=== PATIENT | female | born 1960 | race Caucasian/White ===

== ENCOUNTER 2016-08-10 19:13 | Emergency (ER) | payer MEDICAID ==
[2016-08-10 20:01] VITALS: BMI 24.5
[2016-08-10 20:07] VITALS: PULSE 60; RESP 18; TEMP 98.1
--- NOTE | 2016-08-10 20:39 | ED PDOC ---
Arrival/HPI - History of Present Illness Time/Duration: Prior to Arrival, > month Symptom Onset: Gradual Symptom Course: Unchanged Quality: Pressure Severity Level: 10 <Wilbert Baca - Last Filed: 08/10/16 22:11> <Diana Rivero - Last Filed: 08/10/16 22:20> - General Chief Complaint: Headache Time Seen by Provider: 08/10/16 20:24 - History of Present Illness Narrative History of Present Illness (Text): 08/10/16 20:39 This is a 55 year old female with a pmh notable for migraines and GERD presenting with a persistent headache x 3 months. The patient reports unremitting headache x 3 months without relief. The patient has been following with her pMD and neurologist. The patient states that all tests have returned negative. The patient takes topomax, amityptyaline, and fioricet for headaches. The patient reports nausea and phonophobia. The patient denies fever, chills, chest pain, shortness of breath, abdominal pain, changes in bowel /bladder, and extremity weakness/paresthesias. 08/10/16 20:49 (Wilbert Baca) Past Medical History - Provider Review Nursing Documentation Reviewed: Yes - Travel History Have you recently traveled outside [place] w/in the past 3 mons?: No - Infectious Disease Hx of Infectious Diseases: None - Reproductive Menopause: Yes - Neurological Hx Migraine: Yes - Renal Hx Kidney Stones: Yes - Psychiatric Hx Psychophysiologic Disorder: No Hx Anxiety: No Hx Bipolar Disorder: No Hx Depression: No Hx Emotional Abuse: No Hx Hallucinations: No Hx Panic Disorder: No Hx Post Traumatic Stress Disorder: No Hx Psychosis: No Hx Physical Abuse: No Hx Schizophrenia: No Hx Sexual Abuse: No Hx Substance Use: No - Surgical History Other/Comment: Fibroids - Anesthesia Hx Anesthesia: Yes Hx Anesthesia Reactions: No Hx Malignant Hyperthermia: No <Wilbert Baca - Last Filed: 08/10/16 22:11> <Diana Rivero - Last Filed: 08/10/16 22:20> - Patient History Narrative Patient History: migraines, GERD (Wilbert Baca) Family/Social History - Physician Review Nursing Documentation Reviewed: Yes Family/Social History: No Known Family HX Smoking Status: Never Smoked Hx Alcohol Use: No Hx Substance Use: No <Wilbert Baca - Last Filed: 08/10/16 22:11> Allergies/Home Meds <Wilbert Baca - Last Filed: 08/10/16 22:11> <JosefaFaustohernesto - Last Filed: 08/10/16 22:20> Allergies/Adverse Reactions: Allergies morphine Adverse Reaction (Verified 08/10/16 20:07) ITCHING Home Medications: Home Meds Medication Instructions Recorded Confirmed Amitriptyline [Elavil] 50 mg PO 10/17/15 10/17/15 Butalbital/Acetaminophen 1 tab PO 10/17/15 [Butalbital-Acetaminophen 325 mg-50 mg] Omeprazole [Prilosec] 40 mg PO DAILY 10/17/15 10/17/15 Review of Systems - Physician Review All systems were reviewed & negative as marked: Yes - Review of Systems Constitutional: absent: Fatigue, Fevers Eyes: absent: Vision Changes, Photophobia ENT: Other (Phonophobia ). absent: Hearing Changes, Tinnitus, TMJ Pain, Rhinorrhea Respiratory: absent: SOB Cardiovascular: absent: Chest Pain, Palpitations Gastrointestinal: absent: Abdominal Pain Genitourinary Female: absent: Dysuria, Frequency Musculoskeletal: absent: Arthralgias, Back Pain Skin: absent: Rash, Pruritis Neurological: Headache. absent: Dizziness Endocrine: absent: Diaphoresis, Polyuria Hemo/Lymphatic: absent: Adenopathy Psychiatric: absent: Anxiety <Wilbert Baca - Last Filed: 08/10/16 22:11> Physical Exam Vital Signs Reviewed: Yes Temperature: Afebrile Blood Pressure: Normal Pulse: Regular Respiratory Rate: Normal Appearance: Positive for: Well-Appearing, Non-Toxic, Uncomfortable Pain Distress: Moderate Mental Status: Positive for: Alert and Oriented X 3 - Systems Exam Head: Present: Atraumatic, Normocephalic Pupils: Present: PERRL, Other (no papiledema appreciated on fundoscopy ) Extroacular Muscles: Present: EOMI. No: Entrapment Conjunctiva: Present: Normal. No: Injected Ears: Present: Normal, NORMAL TM, Normal Canal. No: Erythema, TM Bulging Mouth: Present: Moist Mucous Membranes, Normal Lips, Normal Tounge Pharnyx: Present: Normal. No: ERYTHEMA, EXUDATE, TONSILS ENLARGED, Peritonsilar Swelling, Uvular Deviation Neck: Present: Normal Range of Motion. No: Meningeal Signs, MIDLINE TENDERNESS , JVD Respiratory/Chest: Present: Clear to Auscultation, Good Air Exchange. No: Respiratory Distress, Accessory Muscle Use Cardiovascular: Present: Regular Rate and Rhythm, Normal S1, S2. No: Murmurs Abdomen: Present: Normal Bowel Sounds. No: Tenderness, Distention, Peritoneal Signs Upper Extremity: Present: Normal Inspection, Normal ROM, NORMAL PULSES, Neurovascularly Intact. No: Cyanosis, Edema Lower Extremity: Present: Normal Inspection, NORMAL PULSES, Normal ROM, Neurovascularly Intact. No: Edema, CALF TENDERNESS Neurological: Present: GCS=15, CN II-XII Intact, Speech Normal, Motor Func Grossly Intact, Normal Sensory Function, Normal Cerebellar Funct, Norm Deep Tendon Reflexes, Gait Normal, Memory Normal Skin: Present: Warm, Dry, Normal Color. No: Rashes Psychiatric: Present: Alert, Oriented x 3 <Wilbert Baca - Last Filed: 08/10/16 22:11> Vital Signs Temp Pulse Resp Pulse Ox 08/10/16 20:00 98.1 F 60 18 99 Medical Decision Making Re-evaluation Time: 22:11 Reassessment Condition: Re-examined, Improving,but remains with symptoms - RAD Interpretation Patent Agent: Radiologist <Wilbert Baca - Last Filed: 08/10/16 22:11> - RAD Interpretation Patent Agent: Radiologist <Diana Rivero - Last Filed: 08/10/16 22:20> ED Course and Treatment: 08/10/16 20:49 Impression: This is a 55 year old female with a pmh notable for migraines and GERD presenting with a persistent headache x 3 months. The patient appears uncomfortable, but calm. The patient likely has a migraine consistent with her history. Differential: Migraine Tension Headache Cluster Headache Plan: Toradol 13mg IV Reglan 10mg IV 1L bolus NS Prior Visits No inpatient admissions 02/13/16- ED visit for unspecified abdominal pain Progress Note: Patient seen and examined at the bedside. The patient appears uncomfortable. Patient resting in bed prior to examination. No photophobia. Patient unaware of her migraine triggers. Patient currently being followed by PMD and neurologist as an outpatient for headaches. Patient will be treated symptomatically while in the ED. 08/10/16 22:14 Patient has symptomatically improved. Patient requesting discharge. Patient medically stable for discharge. Discharge plan thoroughly discussed with the patient. She is agreeable with the plan. The patient was medically stable for discharge home with follow ups as discussed. (Wilbert Baca) Patient seen and examined with resident. Came up with treatment and disposition plan with resident. The patient is a 55 year old female who presents to the emergency department for evaluation of a headache. Additional HPI details as noted by the resident. Physical examination reveals no acute findings. 08/10/16 21:57 CT results reviewed, interpreted by [facility]. IMPRESSION: No acute intracranial abnormality. If symptoms persist, consider MRI for further evaluation. 08/10/16 22:[address] and patient feeling much better -will d/c to f/u her neurologist. (Diana Rivero) - RAD Interpretation Narrative RAD Interpretations (Text): 08/10/16 22:11 FINDINGS: Brain: No intracranial hemorrhage. No mass. No definite edema. Ventricles: No hydrocephalus. Bones/joints: No acute fracture. Soft tissues: Unremarkable. Sinuses: No acute sinusitis. Mastoid air cells: No mastoid effusion. Orbits: Unremarkable as visualized. IMPRESSION: 1. No acute intracranial abnormality. If symptoms persist, consider MRI for further evaluation. 2. Incidental/non-acute findings are described above. (Wilbert Baca) EXAM: CT Head Without Intravenous Contrast. FINDINGS: Brain: No intracranial hemorrhage. No mass. No definite edema. Ventricles: No hydrocephalus. Bones/joints: No acute fracture. Soft tissues: Unremarkable. Sinuses: No acute sinusitis. Mastoid air cells: No mastoid effusion. Orbits: Unremarkable as visualized. IMPRESSION: 1. No acute intracranial abnormality. If symptoms persist, consider MRI for further evaluation. 2. Incidental/non-acute findings are described above (Diana Rivero) Radiology Orders: 08/10/16 21:02 Brain [HEAD W/O CONTRAST] [CT] Stat - Medication Orders Current Medication Orders: Discontinued Medications Sodium Chloride (Sodium Chloride 0.9%) 1,000 mls @ 999 mls/hr IV .Q1H1M STA Stop: 08/10/16 21:55 Last Admin: 08/10/16 21:45 Dose: 999 MLS/HR eMAR Start Stop Document 08/10/16 21:45 SB (Rec: 08/10/16 22:13 SB [id number]) Intravenous Solution Start Date 08/10/16 Start Time 22:13 End Date 08/10/16 Ketorolac Tromethamine (Toradol) 30 mg IVP STAT STA Stop: 08/10/16 20:56 Last Admin: 08/10/16 21:21 Dose: 30 MG IVP Administration Document 08/10/16 21:21 SB (Rec: 08/10/16 21:21 [id number] Charges for Administration # of IVP Administrations 1 Metoclopramide HCl (Reglan) 10 mg IVP STAT STA Stop: 08/10/16 20:56 Last Admin: 08/10/16 21:21 Dose: 10 MG IVP Administration Document 08/10/16 21:21 SB (Rec: 08/10/16 21:21 [id number]) Charges for Administration # of IVP Administrations 1 <Wilbert Baca - Last Filed: 08/10/16 22:11> - PA / CARDIOLOGY RN / Resident Statement MD/DO has reviewed & agrees with the documentation as recorded. MD/DO has examined the patient and agrees with the treatment plan. - Scribe Statement The provider has reviewed the documentation as recorded by the Scribe <Diana Rivero - Last Filed: 08/10/16 22:20> - Scribe Statement Luke Zaragoza Provider Scribe Attestation: All medical record entries made by the Scribe were at my direction and personally dictated by me. I have reviewed the chart and agree that the record accurately reflects my personal performance of the history, physical exam, medical decision making, and the department course for this patient. I have also personally directed, reviewed, and agree with the discharge instructions and disposition. (Diana Rivero) Disposition/Present on Arrival - Present on Arrival Any Indicators Present on Arrival: No History of DVT/PE: No History of Uncontrolled Diabetes: No Urinary Catheter: No History of Decub. Ulcer: No History Surgical Site Infection Following: None - Disposition Have Diagnosis and Disposition been Completed?: Yes Disposition Time: 22:00 Patient Plan: Discharge <Wilbert Baca - Last Filed: 08/10/16 22:11> <Diana Rivero - Last Filed: 08/10/16 22:20> - Disposition Diagnosis: Migraine Disposition: HOME/ ROUTINE Patient Problems: Current Active Problems Problem Status Diagnosed Migraine Acute Condition: FAIR Discharge Instructions (ExitCare): Migraine Headache (ED) Print Language: ROMANIAN Additional Instructions: 1.) Follow up with neurologist within 2 days of discharge 2.) Follow up with PMD within 2 days of discharge 3.) Maintain adequate hydration 4.) Keep a diary/log of events preceding headache to identify migraine triggers 5.) If symptoms return/worsen please return to the ED for evaluation Referrals: Lesli Briceno MD [Primary Care Provider] - Follow up with primary Kvng Causey MD [Staff Provider] - Follow up with primary
[2016-08-10] MEDS ORDERED: Sodium Chloride 0.9% 1,000 ML IV STA (20:55)
--- NOTE | 2016-08-10 21:53 | CT ---
EXAM: CT Head Without Intravenous Contrast. CLINICAL HISTORY: 55 years old, female; Pain; Headache; Migraine; Aura effect not specified; Other: Unknown TECHNIQUE: Axial computed tomography images of the head/brain without intravenous contrast. This CT exam was performed using one or more of the following dose reduction techniques: automated exposure control, adjustment of the mA and/or kV according to patient size, and/or use of iterative reconstruction technique. COMPARISON: No relevant prior studies available. FINDINGS: Brain: No intracranial hemorrhage. No mass. No definite edema. Ventricles: No hydrocephalus. Bones/joints: No acute fracture. Soft tissues: Unremarkable. Sinuses: No acute sinusitis. Mastoid air cells: No mastoid effusion. Orbits: Unremarkable as visualized. IMPRESSION: 1. No acute intracranial abnormality. If symptoms persist, consider MRI for further evaluation. 2. Incidental/non-acute findings are described above.
[2016-08-10 22:21] VITALS: BP 145/83; O2SAT 96
== END 2016-08-10 22:20 | disposition home or self-care (01) ==
LOC: ED 19:13
DX: G43.909 Migraine, unspecified, not intractable, without status migrainosus (principal)
CPT/HCPCS: 70450; 96374; 96375; 99285; J1885; J2765; J7040

== ENCOUNTER 2017-05-07 17:51 | Emergency (ER) | payer MEDICAID ==
--- NOTE | 2017-05-07 18:07 | ED PDOC ---
Arrival/HPI - General Chief Complaint: Headache Time Seen by Provider: 05/07/17 18:04 Historian: Patient - History of Present Illness Narrative History of Present Illness (Text): 05/07/17 18:07 This is a 55 year old female with a pmh notable for migraines and GERD presenting with a persistent headache since last night. Past Medical History - Infectious Disease Hx of Infectious Diseases: None - Neurological Hx Migraine: Yes - Renal Hx Kidney Stones: Yes - Psychiatric Hx Psychophysiologic Disorder: No Hx Anxiety: No Hx Bipolar Disorder: No Hx Depression: No Hx Emotional Abuse: No Hx Hallucinations: No Hx Panic Disorder: No Hx Post Traumatic Stress Disorder: No Hx Psychosis: No Hx Physical Abuse: No Hx Schizophrenia: No Hx Sexual Abuse: No Hx Substance Use: No - Surgical History Other/Comment: Fibroids - Anesthesia Hx Anesthesia: Yes Hx Anesthesia Reactions: No Hx Malignant Hyperthermia: No Family/Social History Smoking Status: Never Smoked Hx Alcohol Use: No Hx Substance Use: No Allergies/Home Meds Allergies/Adverse Reactions: Allergies morphine Adverse Reaction (Verified 08/10/16 20:07) ITCHING Home Medications: Home Meds Medication Instructions Recorded Confirmed Amitriptyline [Elavil] 50 mg PO DAILY 10/17/15 05/07/17 Butalbital/Acetaminophen 1 tab PO DAILY PRN 10/17/15 05/07/17 [Butalbital-Acetaminophen 325 mg-50 mg] Omeprazole [Prilosec] 40 mg PO DAILY 10/17/15 05/07/17 Physical Exam Vital Signs Temp Pulse Resp BP Pulse Ox 05/07/17 22:04 67 18 160/90 H 98 05/07/17 19:41 72 160/95 H 05/07/17 17:59 180/79 H 05/07/17 17:58 97.9 F 78 18 190/107 H 99 Medical Decision Making ED Course and Treatment: 05/07/17 21:36 Re-evaluation. Patient feels better. Discussed results and plan with patient who expresses understanding. All questions answered and there is agreement with the plan to discharge home with instructions. Patient stable for discharge. Return if symptoms persist or worsen. Re-evaluation Time: 21:39 Reassessment Condition: Re-examined, Improved - RAD Interpretation Narrative RAD Interpretations (Text): 05/07/17 21:30 [facility] [address] [address] Tel. no. Patient Name: VINCENT HASSAN Pt. Address: [place] RIBE[place]O [address] Rec #: [id number] [place] [address]: Tiffany Gee PA-C Pt Order Location: ED : 1960 Female Age: 56 Order #: [id number] Reason for exam: MOTA CT Scan HEAD W/O CONTRAST Exam Date: 05/07/17 This imaging exam was performed at [facility] EXAM: CT Head Without Intravenous Contrast CLINICAL HISTORY: 56 years old, female; Pain; Headache; Additional info: MOTA TECHNIQUE: Axial computed tomography images of the head/brain without intravenous contrast. All CT scans at this facility use one or more dose reduction techniques, viz.: automated exposure control; ma/kV adjustment per patient size (including targeted exams where dose is matched to indication; i.e. head); or iterative reconstruction technique. Coronal and sagittal reformatted images were created and reviewed. COMPARISON: CT - HEAD W/O CONTRAST 2016-08-10 21:22 FINDINGS: Brain: Minimal atrophy. No intracranial hemorrhage. No mass. No definite edema. Ventricles: No hydrocephalus. Bones/joints: No acute fracture. Soft tissues: Unremarkable. Sinuses: No acute sinusitis. Mastoid air cells: No mastoid effusion. Orbits: Unremarkable as visualized. IMPRESSION: 1. No definite acute intracranial abnormality. 2. Incidental/non-acute findings are described above. Dictated By: Reed Og MD Dictated Date/Time: 05/07/172044 Signed By: Reed Og MD Date Signed: 2044 Transcribed By: SANDEEP Transcribe Date/Time : 05/07/172044 ACYP02/FELICITY Radiology Orders: 05/07/17 18:13 HEAD W/O CONTRAST [CT] Stat - EKG Interpretation Interpreted by ED Physician: Yes (NSR @ [address] changes) Type: 12 lead EKG Comparison: No previous EKG avail. - Medication Orders Current Medication Orders: Discontinued Medications Diphenhydramine HCl (Benadryl) 50 mg IVP STAT STA Stop: 05/07/17 18:11 Last Admin: 05/07/17 18:37 Dose: 50 mg IVP Administration Document 05/07/17 18:37 EWO (Rec: 05/07/17 18:37 [id number]) Charges for Administration # of IVP Administrations 1 Sodium Chloride (Sodium Chloride 0.9%) 1,000 mls @ 999 mls/hr IV .Q1H1M STA Stop: 05/07/17 19:11 Last Admin: 05/07/17 18:36 Dose: 999 mls/hr eMAR Start Stop Document 05/07/17 18:36 EWO (Rec: 05/07/17 18:37 [id number]) Intravenous Solution Start Date 05/07/17 Start Time 18:37 End Date 05/07/17 End time 19:37 Total Infusion Time 60 Ketorolac Tromethamine (Toradol) 15 mg IVP STAT STA Stop: 05/07/17 21:36 Last Admin: 05/07/17 22:03 Dose: 15 mg MAR Pain Assessment Document 05/07/17 22:03 SS (Rec: 05/07/17 22:04 SS [id number]) Pain Reassessment Is this a pain reassessment? Yes Sleep Is patient sleeping during reassessment? No Presence of Pain Presence of Pain Yes Location Pain Location Body [employer] IVP Administration Document 05/07/17 22:03 SS (Rec: 05/07/17 22:04 SS [id number]) Charges for Administration # of IVP Administrations 1 Metoclopramide HCl (Reglan) 10 mg IVP STAT STA Stop: 05/07/17 18:12 Last Admin: 05/07/17 18:37 Dose: 10 mg IVP Administration Document 05/07/17 18:37 EWO (Rec: 05/07/17 18:37 [id number]) Charges for Administration # of IVP Administrations 1 Disposition/Present on Arrival - Present on Arrival Any Indicators Present on Arrival: No History of DVT/PE: No History of Uncontrolled Diabetes: No Urinary Catheter: No History of Decub. Ulcer: No History Surgical Site Infection Following: None - Disposition Have Diagnosis and Disposition been Completed?: Yes Diagnosis: Migraines Disposition: HOME/ ROUTINE Disposition Time: 21:46 Patient Plan: Discharge Condition: GOOD Discharge Instructions (ExitCare): General Headache (ED) Additional Instructions: Call private neurologist doctor for follow up visit in 1-2 days. Continue with home medication for hedaches as instructed by your doctor. Return to emergency if symptoms worsen. Referrals: Lesli Briceno MD [Primary Care Provider] - Follow up with primary Kvng Causey MD [Staff Provider] - Follow up with primary Forms: [employer] (Khmer)
[2017-05-07] MEDS ORDERED: DiphenhydrAMINE 50 mg/ml Inj IVP STA (18:10)
[2017-05-07] MEDS ORDERED: Sodium Chloride 0.9% 1,000 ML IV STA (18:11)
[2017-05-07 18:20] VITALS: RESP 18; TEMP 97.9; BMI 26.2
--- NOTE | 2017-05-07 20:45 | CT ---
EXAM: CT Head Without Intravenous Contrast CLINICAL HISTORY: 56 years old, female; Pain; Headache; Additional info: MOTA TECHNIQUE: Axial computed tomography images of the head/brain without intravenous contrast. All CT scans at this facility use one or more dose reduction techniques, viz.: automated exposure control; ma/kV adjustment per patient size (including targeted exams where dose is matched to indication; i.e. head); or iterative reconstruction technique. Coronal and sagittal reformatted images were created and reviewed. COMPARISON: CT - HEAD W/O CONTRAST 2016-08-10 21:22 FINDINGS: Brain: Minimal atrophy. No intracranial hemorrhage. No mass. No definite edema. Ventricles: No hydrocephalus. Bones/joints: No acute fracture. Soft tissues: Unremarkable. Sinuses: No acute sinusitis. Mastoid air cells: No mastoid effusion. Orbits: Unremarkable as visualized. IMPRESSION: 1. No definite acute intracranial abnormality. 2. Incidental/non-acute findings are described above.
[2017-05-07 22:04] VITALS: BP 160/90; PULSE 67; O2SAT 98
--- NOTE | 2017-05-08 09:57 | CARD ---
APPROVED REPORT EKG Measurement Heart [id number] [place] [id number] <Conclusion> Normal sinus rhythm Normal ECG
== END 2017-05-07 22:05 | disposition home or self-care (01) ==
LOC: ED 17:51
DX: G43.909 Migraine, unspecified, not intractable, without status migrainosus (principal)
CPT/HCPCS: 70450; 93005; 96361; 96374; 96375; 99285; J1200; J1885; J2765; J7040